=== PATIENT | female | born 1995 | race Caucasian/White ===

== ENCOUNTER 2017-06-29 14:10 | Emergency (ER) | payer BC ==
[2017-06-29 14:46] VITALS: BP 145/84
--- NOTE | 2017-06-29 15:41 | UC ---
Skin Complaint HPI - HPI Summary HPI Summary: 3 days of increased pain in right 2nd toe, now there is some drainage around the nail bed. - History of Current Complaint Chief Complaint: UCLowerExtremity Time Seen by Provider: 06/29/17 15:27 Stated Complaint: RIGHT FOOT SKIN COMPLAINT Hx Obtained From: Patient Hx Last Menstrual Period: 06/15/17 Onset/Duration: Sudden Onset, Lasting Days Skin Exposure Onset/Duration: Days Ago Timing: Constant Onset Severity: Mild Current Severity: Moderate Location: Discrete, Foot (Right) Character: Redness, Raised, Painful Aggravating Factor(s): Nothing Alleviating Factor(s): Nothing Associated Signs & Symptoms: Positive: Drainage - Allergy/Home Medications Allergies/Adverse Reactions: Allergies Allergy/AdvReac Type Severity Reaction Status Date / Time No Known Allergies Allergy Verified 06/29/17 14:45 Review of Systems Constitutional: Negative Skin: Other - drainage from toe Eyes: Negative ENT: Negative Respiratory: Negative Cardiovascular: Negative Gastrointestinal: Negative Genitourinary: Negative Motor: Negative Neurovascular: Negative Musculoskeletal: Edema Neurological: Negative Psychological: Negative Is Patient Immunocompromised?: No All Other Systems Reviewed And Are Negative: Yes PMH/Surg Hx/FS Hx/Imm Hx Previously Healthy: Yes - Surgical History Surgical History: None Surgery Procedure, Year, and Place: [place] teeth - Family History Known Family History: Negative: Cardiac Disease, Hypertension, Diabetes, Respiratory Disease - Social History Alcohol Use: Weekly Substance Use Type: Marijuana Substance Use Comment - Amount & Last Used: in past Smoking Status (MU): Never Smoked Tobacco Physical Exam Triage Information Reviewed: Yes Appearance: Well-Appearing, Pain Distress, Obese Vital Signs: Initial Vital Signs Temp 98.3 F 06/29/17 14:35 Pulse 76 06/29/17 14:35 Resp 16 06/29/17 14:35 BP 145/84 06/29/17 14:35 Pulse Ox 100 06/29/17 14:35 Vital Signs Reviewed: Yes Eye Exam: Normal ENT Exam: Normal ENT: Positive: Hearing grossly normal, Pharynx normal, TMs normal Dental Exam: Normal Neck exam: Normal Respiratory Exam: Normal Cardiovascular Exam: Normal Cardiovascular: Positive: RRR, No Murmur, Pulses Normal Abdominal Exam: Normal Abdomen Description: Positive: Nontender, No Organomegaly, Soft Bowel Sounds: Positive: Present Musculoskeletal Exam: Normal Neurological Exam: Normal Psychological Exam: Normal Skin: Positive: Other - mild erythema and swelling on the lateral side of the second toe on the right foot, drainage noted Course/Dx - Course Course Of Treatment: hx obtained, exam performed ,meds reviewed, treated for paronychia - Differential Diagnoses - Skin Complaint Differential Diagnoses: Abscess - Diagnoses Provider Diagnoses: paronychia of right 2nd toe Discharge - Discharge Plan Condition: Stable Disposition: HOME Patient Education Materials: Paronychia (ED) Additional Instructions: 1. take the medication as prescribed. 2. Warm soaks for the foot 1-2 times a day 3. FOllow up if not improving.
== END 2017-06-29 15:30 | disposition home or self-care (01) ==
LOC: UCCORT 14:10
DX: L03.031 Cellulitis of right toe (principal); F12.90 Cannabis use, unspecified, uncomplicated
CPT/HCPCS: 99212; G0463

== ENCOUNTER 2017-07-06 13:58 | Emergency (ER) | payer BC ==
[2017-07-06 14:09] VITALS: BP 134/89
--- NOTE | 2017-07-06 14:17 | UC ---
Lower Extremity/Ankle HPI - HPI Summary HPI Summary: Pt reports that she was "out" two nights ago and stepped on to uneven pavement and inverted right ankle. Immediate onset of pain. s/o worsening pain and minimal ability to bear weight. - History of Current Complaint Chief Complaint: UCLowerExtremity Stated Complaint: RIGHT ANKLE INJURY Time Seen by Provider: 07/06/17 14:06 Hx Obtained From: Patient Hx Last Menstrual Period: 06/15/17 ?: No Onset/Duration: Sudden Onset, Lasting Days, Still Present Severity Initially: Mild Severity Currently: Mild Aggravating Factor(s): Standing, Ambulation Alleviating Factor(s): Rest Able to Bear Weight: Yes - Risk Factors Gout Risk Factors: Obesity DVT Risk Factors: Negative - Allergies/Home Medications Allergies/Adverse Reactions: Allergies Allergy/AdvReac Type Severity Reaction Status Date / Time No Known Allergies Allergy Verified 07/06/17 14:01 PMH/Surg Hx/FS Hx/Imm Hx Previously Healthy: Yes - Surgical History Surgical History: Yes Surgery Procedure, Year, and Place: [place] teeth - Family History Known Family History: Negative: Cardiac Disease, Hypertension, Diabetes, Respiratory Disease - Social History Lives: With Family Alcohol Use: Weekly Alcohol Amount: weekends Substance Use Type: None Substance Use Comment - Amount & Last Used: in past Smoking Status (MU): Never Smoked Tobacco Have You Smoked in the Last Year: No - Immunization History Most Recent Influenza Vaccination: none 2016 Review of Systems Constitutional: Negative Skin: Negative Eyes: Negative ENT: Negative Respiratory: Negative Cardiovascular: Negative Gastrointestinal: Negative Genitourinary: Negative Motor: Decreased ROM - right ankle Neurovascular: Negative Musculoskeletal: Arthralgia - right lateral malleolus, Decreased ROM - right lateral malleolus, Edema - right lateral malleolus, Myalgia - right lateral malleolus Neurological: Negative Psychological: Negative Is Patient Immunocompromised?: No All Other Systems Reviewed And Are Negative: Yes Physical Exam Triage Information Reviewed: Yes Appearance: Well-Appearing Vital Signs: Initial Vital Signs Temp 97.5 F 07/06/17 14:02 Pulse 96 07/06/17 14:02 Resp 16 07/06/17 14:02 BP 134/89 07/06/17 14:02 Pulse Ox 97 07/06/17 14:02 Vital Signs Reviewed: Yes Eye Exam: Normal ENT Exam: Normal Dental Exam: Normal Respiratory Exam: Other Respiratory: Positive: No respiratory distress Cardiovascular Exam: Normal Musculoskeletal Exam: Other Musculoskeletal: Positive: Strength Limited @ - right lateral malleolus, ROM Limited @ - right lateral malleolus, Edema @ - right lateral malleolus Neurological Exam: Normal Psychological Exam: Normal Skin Exam: Normal Lower Extremity Course/Dx - Course Course Of Treatment: xray: IMPRESSION: NO ACUTE OSSEOUS INJURY. IF SYMPTOMS PERSIST, RECOMMEND REPEAT IMAGING. - Differential Dx/Diagnosis Differential Diagnosis/HQI/PQRI: Fracture (Closed), Sprain Provider Diagnoses: right ankle sprain. IMPRESSION: NO ACUTE OSSEOUS INJURY. IF SYMPTOMS PERSIST, RECOMMEND REPEAT IMAGING. Discharge - Discharge Plan Condition: Stable Disposition: HOME Patient Education Materials: Ankle Sprain (ED) Referrals: Daria Moreland MD [Medical Doctor] - If Needed Non Staff,Doctor [Primary Care Provider] - If Needed Additional Instructions: xray:
--- NOTE | 2017-07-06 14:34 | RAD ---
HISTORY: Right ankle inversion injury COMPARISONS: None VIEWS: 3, Frontal, lateral, and oblique views of the right ankle FINDINGS: BONE DENSITY: Normal. BONES: There is no displaced fracture. JOINTS: There is no arthropathy. ALIGNMENT: There is no dislocation. SOFT TISSUES: Unremarkable. OTHER FINDINGS: None. IMPRESSION: NO ACUTE OSSEOUS INJURY. IF SYMPTOMS PERSIST, RECOMMEND REPEAT IMAGING.
== END 2017-07-06 14:54 | disposition home or self-care (01) ==
LOC: UCCORT 13:58
DX: S93.401A Sprain of unspecified ligament of right ankle, initial encounter (principal); X50.1XXA Overexertion from prolonged static or awkward postures, initial encounter
CPT/HCPCS: 99212; G0463

== ENCOUNTER 2017-08-10 17:38 | Emergency (ER) | payer BC ==
[2017-08-10 17:49] VITALS: BP 135/73
--- NOTE | 2017-08-10 18:08 | UC ---
Knee Pain HPI - HPI Summary HPI Summary: patient was stepping up on a step, fell twisting her left knee, heard a pop, she is morbidly obese. - History of Current Complaint Chief Complaint: UCLowerExtremity Stated Complaint: LEFT KNEE PAIN Time Seen by Provider: 08/10/17 17:59 Hx Obtained From: Patient Hx Last Menstrual Period: 07/21/17 ?: No Onset/Duration: Sudden Onset, Lasting Days Severity Initially: Moderate Severity Currently: Moderate Aggravating Factor(s): Movement, Weight Bearing, Prolonged Standing, Stairs Alleviating Factor(s): Rest Associated Signs And Symptoms: Positive: Swelling - Allergies/Home Medications Allergies/Adverse Reactions: Allergies Allergy/AdvReac Type Severity Reaction Status Date / Time No Known Allergies Allergy Verified 08/10/17 17:49 Home Medications: Home Medications NK [No Home Medications Reported] 08/10/17 [History Confirmed 08/10/17] PMH/Surg Hx/FS Hx/Imm Hx Previously Healthy: Yes - Surgical History Surgical History: Yes Surgery Procedure, Year, and Place: [place] teeth - Family History Known Family History: Negative: Cardiac Disease, Hypertension, Diabetes, Respiratory Disease - Social History Alcohol Use: Weekly Alcohol Amount: weekends Substance Use Type: None Substance Use Comment - Amount & Last Used: in past Smoking Status (MU): Never Smoked Tobacco Have You Smoked in the Last Year: No - Immunization History Most Recent Influenza Vaccination: none 2016 Review of Systems Constitutional: Negative Skin: Negative Eyes: Negative ENT: Negative Respiratory: Negative Cardiovascular: Negative Gastrointestinal: Negative Genitourinary: Negative Motor: Negative Neurovascular: Negative Musculoskeletal: Arthralgia, Decreased ROM, Edema Neurological: Negative Psychological: Negative Is Patient Immunocompromised?: No All Other Systems Reviewed And Are Negative: Yes Physical Exam Triage Information Reviewed: Yes Appearance: Well-Appearing, Well-Nourished, Pain Distress Vital Signs: Initial Vital Signs Temp 97.6 F 08/10/17 17:41 Pulse 92 08/10/17 17:41 Resp 17 08/10/17 17:41 BP 135/73 08/10/17 17:41 Pulse Ox 98 08/10/17 17:41 Vital Signs Reviewed: Yes Eye Exam: Normal ENT Exam: Normal ENT: Positive: Hearing grossly normal, Pharynx normal, TM dull Dental Exam: Normal Neck exam: Normal Neck: Positive: Supple, Nontender, No Lymphadenopathy Respiratory Exam: Normal Respiratory: Positive: Chest non-tender, Lungs clear, Normal breath sounds Cardiovascular Exam: Normal Cardiovascular: Positive: RRR, No Murmur, Pulses Normal Abdominal Exam: Normal Abdomen Description: Positive: Nontender, No Organomegaly, Soft Bowel Sounds: Positive: Present Musculoskeletal: Positive: Strength Limited @, ROM Limited @, Edema @ Neurological Exam: Normal Neurological: Positive: Alert, Muscle Tone Normal Psychological Exam: Normal Skin Exam: Normal Knee Pain Course/Dx - Course Course Of Treatment: hx obtained, exam performed ,meds reviewed, xray obtained and is negative for any dislocation or fracture, knee immobilizer and crutches given. referred to ortho for follow up - Differential Dx/Diagnosis Differential Diagnosis/HQI/PQRI: Internal Derangement Of Knee, Sprain, Strain Provider Diagnoses: left knee pain Discharge - Discharge Plan Condition: Stable Disposition: HOME Patient Education Materials: Knee Pain (ED) Referrals: No Primary Care Phys,NOPCP [Primary Care Provider] - Additional Instructions: 1. use the immobilizer, clarie wrap and crutches to wrok back into full weight bearing. rest as much as you can. 2. If you are not improving in the next week, follow up with Dr winston, or your own orthopedic for further imaging. 3. your xray was negative
--- NOTE | 2017-08-10 18:27 | RAD ---
INDICATION: Left knee pain after a twisting injury the previous night COMPARISON: None TECHNIQUE: 4 view radiograph of the left knee. FINDINGS: The visualized bones are well-corticated and properly aligned. The joint spaces are properly maintained. There is no radiographic evidence of joint effusion. There is no acute fracture, dislocation or other focal bony abnormality. IMPRESSION: Normal knee radiograph as described above. If the patient's symptoms persist, follow-up imaging is recommended.
== END 2017-08-10 19:12 | disposition home or self-care (01) ==
LOC: UCCORT 17:38
DX: M25.562 Pain in left knee (principal); E66.01 Morbid (severe) obesity due to excess calories
CPT/HCPCS: 99213; G0463